=== PATIENT | male | born 1985 | race Caucasian/White ===

== ENCOUNTER 2021-01-11 15:37 | Emergency (ER) | payer OTHER ==
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
[2021-01-11 17:11] VITALS: BP 142/95; TEMP 98.8; O2SAT 98
== END 2021-01-11 17:04 | disposition home or self-care (01) ==
LOC: ER 15:37
DX: M62.838 Other muscle spasm (principal); V49.40XA Driver injured in collision with unspecified motor vehicles in traffic accident, initial encounter; Z88.5 Allergy status to narcotic agent
CPT/HCPCS: 70450; 72125; 99283